=== PATIENT | female | born 1975 | race Two or more races ===

== ENCOUNTER 2025-03-30 16:00 | Emergency (ER) | payer BC ==
[~2025-03-30] VITALS: Ht 180.3 cm; Wt 97.1 kg
[2025-03-30] MEDS ORDERED: CYCL10TA9 PO (18:39)
[2025-03-30] MEDS ORDERED: ONDA4TAB11 PO (18:39)
[2025-03-30] MEDS ORDERED: HYDR-3980 PO (18:39)
[2025-03-30] MEDS ORDERED: CYCLOBENZAPRINE HCL 10 MG TABLET ONE (18:56)
[2025-03-30] MEDS ORDERED: ONDANSETRON ODT 4 MG TAB.RAPDIS ONE (18:56)
[2025-03-30] MEDS ORDERED: HYDROCODONE/APAP 10-325 MG TABLET ONE (18:57)
[2025-03-30] MEDS: HYDROCODONE/APAP 10-325 MG TABLET PO ONE (19:01)
[2025-03-30] MEDS: ONDANSETRON ODT 4 MG TAB.RAPDIS SL ONE (19:01)
[2025-03-30] MEDS: CYCLOBENZAPRINE HCL 10 MG TABLET PO ONE (19:01)
[2025-03-30 19:17] VITALS: BP 126/74; TEMP 98; O2SAT 97
== END 2025-03-30 19:18 | disposition home or self-care (01) ==
LOC: ER 16:00
DX: M54.32 Sciatica, left side (principal); M54.50 Low back pain, unspecified; D86.9 Sarcoidosis, unspecified; J44.9 Chronic obstructive pulmonary disease, unspecified; F43.10 Post-traumatic stress disorder, unspecified
CPT/HCPCS: A4606; A4663; Q0162